=== PATIENT | female | born 1940 | race Caucasian/White ===

== ENCOUNTER → 2017-12-26 | Outpatient (CLI) | payer OTHER | END | disposition home or self-care (01) | LOC: PCVCIMAG 11:30 | DX: I73.9 Peripheral vascular disease, unspecified (principal); E78.00 Pure hypercholesterolemia, unspecified; L97.519 Non-pressure chronic ulcer of other part of right foot with unspecified severity; F17.200 Nicotine dependence, unspecified, uncomplicated; I70.8 Atherosclerosis of other arteries | CPT/HCPCS: 93925; 93978; G0463 ==

== ENCOUNTER → 2018-01-05 | Outpatient (CLI) | payer OTHER ==
[~2018-01-05] MED LIST: ACETAMINOPHEN 500 MG TABLET PO; CLOPIDOGREL BISULFATE 75 MG TABLET; DIAZEPAM 10 MG TABLET.; EPINEPHrine 1 MG/ML VIAL; EPTIFIBATIDE BOLUS 2,000 MCG/ML 10ML VIAL. IV; HEPARIN SODIUM 5,000 UNIT/ML VIAL for PCVC.; IODIXANOL 270 MG/ML 100 ML VIAL.; IV NORMAL SALINE 500ML BAG 1,000 ML; LIDOCAINE 1% Multi-Dose 20 ML VIAL.; MIDAZOLAM HCL/PF 2 MG/2 ML VIAL.; PROTAMINE 50 MG/5 ML VIAL. IV; ceFAZolin SODIUM 1 GM VIAL; fentaNYL PF VIAL 100 MCG/2 ML VIAL; hydrALAZINE 20 MG/ML VIAL.
== END | disposition home or self-care (01) ==
LOC: PCVCIMAG 09:08
DX: I25.10 Atherosclerotic heart disease of native coronary artery without angina pectoris (principal); I73.9 Peripheral vascular disease, unspecified; I10 Essential (primary) hypertension; I70.1 Atherosclerosis of renal artery; L97.919 Non-pressure chronic ulcer of unspecified part of right lower leg with unspecified severity
CPT/HCPCS: 36252; 37221; 37223; 75716; 76937; 99152; 99153; C1725; C1751; C1757; C1760; C1769; C1876; C1887; C1894; J0171; J0360; J0690; J1327; J1644; J2250; J3010; J7040

== ENCOUNTER → 2018-01-12 | Outpatient (CLI) | payer OTHER | END | disposition home or self-care (01) | LOC: PCVCIMAG 14:58 | DX: M79.604 Pain in right leg (principal); M79.89 Other specified soft tissue disorders | CPT/HCPCS: 93971 ==

== ENCOUNTER → 2018-01-25 | Outpatient (CLI) | payer OTHER ==
[~2018-01-25] MED LIST changes: -ACETAMINOPHEN 500 MG TABLET PO; -CLOPIDOGREL BISULFATE 75 MG TABLET; -DIAZEPAM 10 MG TABLET.; -EPINEPHrine 1 MG/ML VIAL; -EPTIFIBATIDE BOLUS 2,000 MCG/ML 10ML VIAL. IV; -HEPARIN SODIUM 5,000 UNIT/ML VIAL for PCVC.; -IODIXANOL 270 MG/ML 100 ML VIAL.; -IV NORMAL SALINE 500ML BAG 1,000 ML; -LIDOCAINE 1% Multi-Dose 20 ML VIAL.; -MIDAZOLAM HCL/PF 2 MG/2 ML VIAL.; -PROTAMINE 50 MG/5 ML VIAL. IV; +REGADENOSON 0.4 MG/5 ML DISP.SYRIN. IV; -ceFAZolin SODIUM 1 GM VIAL; -fentaNYL PF VIAL 100 MCG/2 ML VIAL; -hydrALAZINE 20 MG/ML VIAL.
== END | disposition home or self-care (01) ==
LOC: PCVCIMAG 11:15
DX: I73.9 Peripheral vascular disease, unspecified (principal); I10 Essential (primary) hypertension; E78.5 Hyperlipidemia, unspecified; F17.200 Nicotine dependence, unspecified, uncomplicated
CPT/HCPCS: 78452; 93017; A9500; J2785

== ENCOUNTER → 2018-03-30 | Outpatient (CLI) | payer OTHER | END | disposition home or self-care (01) | LOC: PCVCIMAG 09:10 | DX: I65.23 Occlusion and stenosis of bilateral carotid arteries (principal); I73.9 Peripheral vascular disease, unspecified; K76.89 Other specified diseases of liver | CPT/HCPCS: 93880; 93923; 93978 ==

== ENCOUNTER → 2018-06-19 | Outpatient (CLI) | payer OTHER ==
--- NOTE | 2018-06-19 16:12 | PCVCIMAG ---
EXAM: AORTOILIAC DUPLEX INDICATION: Peripheral arterial disease. Prior right common iliac artery occlusion. FINDINGS: AORTA: Suprarenal aorta measures maximum diameter of 2.3 cm. There is not a fusiform infrarenal aortic aneurysm. The infrarenal aorta measures maximum diameter of 1.7 cm. No aortic stenosis. RIGHT COMMON ILIAC ARTERY: Maximum diameter is 0.9 cm. No significant stenosis. RIGHT EXTERNAL ILIAC ARTERY: 50% residual/recurrent stenosis mid vessel. LEFT COMMON ILIAC ARTERY: Maximum diameter is 0.9 cm. No significant stenosis. LEFT EXTERNAL ILIAC ARTERY: No significant stenosis. IMPRESSION: No abdominal aortic aneurysm. 50% residual stenosis mid right external iliac artery within prior stent. No left iliac stenosis. No change since prior angiogram. LOC:[id number]
--- NOTE | 2018-06-19 16:23 | PCVCIMAG ---
EXAM: BILATERAL LOWER EXTREMITY ARTERIAL DUPLEX INDICATION: Peripheral Arterial Disease. Leg pain. FINDINGS: Right Leg: Common femoral and profunda femoral arteries are patent. Increased systolic velocity of 485 cm/s mid [place] superficial femoral artery consistent with 80-90% stenosis. This is at the site of a moderate exophytic plaque seen on prior angiogram. Popliteal artery is patent. The anterior tibial, peroneal, and posterior tibial arteries are patent. Left Leg: Moderate restenosis common femoral artery at site of previous angioplasty of approximately 60-70%. Previous stent proximal superficial femoral artery maintaining satisfactory patency. Superficial femoral artery and popliteal artery maintaining adequate patency. The anterior tibial, peroneal, and posterior tibial arteries are patent. IMPRESSION: 80-90% stenosis mid [place] right superficial femoral artery. 60-70% restenosis left common femoral artery at site of prior intervention. Previous stent proximal left superficial femoral artery is patent. LOC:[id number]
== END | disposition home or self-care (01) ==
LOC: PCVCIMAG 14:30
PROVIDERS: ATTEND Nuclear Medicine Nuclear Cardiology
DX: I73.9 Peripheral vascular disease, unspecified (principal)
CPT/HCPCS: 93925; 93978

== ENCOUNTER → 2018-10-18 | Outpatient (CLI) | payer OTHER ==
--- NOTE | 2018-10-18 09:27 | PCVCIMAG ---
EXAM: AORTOILIAC DUPLEX INDICATION: Peripheral arterial disease FINDINGS: AORTA: Suprarenal aorta measures maximum diameter of 2.4 cm. There is not a fusiform infrarenal aortic aneurysm. The infrarenal aorta measures maximum diameter of 2.0 cm. No aortic stenosis. RIGHT COMMON ILIAC ARTERY: Maximum diameter is 1.0 cm. No significant stenosis. RIGHT EXTERNAL ILIAC ARTERY: 90% restenosis distal vessel. LEFT COMMON ILIAC ARTERY: Maximum diameter is 1.0 cm. No significant stenosis. LEFT EXTERNAL ILIAC ARTERY: No significant stenosis. IMPRESSION: No abdominal aortic aneurysm. Previous right common iliac and left external iliac artery stents maintaining satisfactory patency. 90% restenosis within prior stent distal right external iliac artery. LOC:OFFICE
--- NOTE | 2018-10-18 09:30 | PCVCIMAG ---
EXAM: BILATERAL LOWER EXTREMITY ARTERIAL DUPLEX INDICATION: Peripheral Arterial Disease. Leg pain. FINDINGS: Right Leg: Common femoral and profunda femoral arteries are patent. 80% stenosis mid [place] superficial femoral artery. Popliteal artery is patent. Anterior tibial, peroneal, and posterior tibial arteries are patent. Left Leg: Mild stenosis distal common femoral artery. [place] femoral artery is patent. Superficial femoral artery and popliteal artery showing adequate patency. The anterior tibial, peroneal, and posterior tibial arteries are patent. IMPRESSION: 80% stenosis mid [place] right superficial femoral artery. Mild stenosis mid/distal left common femoral artery. Otherwise no flow limiting stenosis in the left lower extremity. LOC:OFFICE
== END | disposition home or self-care (01) ==
LOC: PCVCIMAG 08:25
PROVIDERS: ATTEND Nuclear Medicine Nuclear Cardiology
DX: I73.9 Peripheral vascular disease, unspecified (principal); E78.00 Pure hypercholesterolemia, unspecified
CPT/HCPCS: 93925; 93978

== ENCOUNTER → 2018-11-01 | Outpatient (CLI) | payer OTHER | END | disposition home or self-care (01) | LOC: PCVCCLINIC 10:02 | PROVIDERS: ATTEND Nuclear Medicine Nuclear Cardiology | DX: I73.9 Peripheral vascular disease, unspecified (principal); I77.9 Disorder of arteries and arterioles, unspecified; I10 Essential (primary) hypertension; E78.00 Pure hypercholesterolemia, unspecified; L97.519 Non-pressure chronic ulcer of other part of right foot with unspecified severity; F17.200 Nicotine dependence, unspecified, uncomplicated; Z88.5 Allergy status to narcotic agent; Z91.038 Other insect allergy status; Z90.710 Acquired absence of both cervix and uterus | CPT/HCPCS: G0463 ==

== ENCOUNTER → 2018-11-07 | Outpatient (CLI) | payer OTHER ==
[~2018-11-07] MED LIST changes: +DIAZEPAM 10 MG TABLET. ONE; +EPTIFIBATIDE BOLUS 2,000 MCG/ML 10ML VIAL. IV ONE; +HEPARIN for SUB-Q USE 5,000 UNIT/ML VIAL. SQ ONE; +IODIXANOL 270 MG/ML 100 ML VIAL. ONE; +IV NORMAL SALINE 1000ML BAG 1,000 ML ONE; +LIDOCAINE 1%/EPI 1:100,000 20 ML VIAL. ONE; +MIDAZOLAM HCL/PF 2 MG/2 ML VIAL. ONE; -REGADENOSON 0.4 MG/5 ML DISP.SYRIN. IV; +fentaNYL PF VIAL 100 MCG/2 ML VIAL ONE; +hydrALAZINE 20 MG/ML VIAL. ONE
--- NOTE | 2018-11-07 20:14 | PCVCINTER ---
EXAM: 1. AORTOGRAM AND BILATERAL LOWER EXTREMITY RUNOFF ANGIOGRAM 2. BILATERAL RENAL ANGIOGRAPHY 3. RIGHT EXTERNAL ILIAC ARTERY DRUG COATED BALLOON ANGIOPLASTY. 4. LEFT EXTERNAL ILIAC ARTERY ANGIOPLASTY. INDICATION: Peripheral arterial disease. Lower extremity claudication. Hypertension. Renal atherosclerosis. No prior catheter based angiographic study is available. A full diagnostic angiogram study is performed today and the decision to intervene is based on this diagnostic study. PROCEDURE: Procedure and risks of angiography intervention is appropriate including limb loss stroke and were discussed with the patient's family and consent obtained. The patient's left groin was prepped in the normal sterile fashion. IV conscious sedation was used throughout procedure with appropriate monitoring from 1:30 PM through 2:45 PM. Ultrasound was used to interrogate the left groin and showed the left common femoral artery to be patent. A permanent spot film was obtained. Under ultrasound guidance access into the left common femoral artery was obtained and a 5 [place] sheath was placed. Through this a 5 [place] flush catheter was placed into the abdominal aorta at the level of the renal arteries and AP aortogram was performed. Catheter was positioned at the aortic bifurcation and both oblique views of the pelvis were obtained. Catheter was positioned into the left external iliac artery and left leg runoff angiography was performed. Catheter was exchanged for a visceral catheter was placed into the right renal arteries and right renal angiograms obtained. Catheter was placed into the the left renal arteries and left renal angiograms were obtained. Catheter was advanced to the level of the right external iliac artery and right leg runoff angiography was obtained. Patient was given 3000units of heparin. A 6 [place] crossover sheath was placed via the left groin to the level of the right common iliac artery. Following this drug coated balloon angioplasty of the right external iliac artery was carried out with a 6 x 80 BT [employer] [place] [employer] catheter. Angioplasty of the right external iliac artery was performed with a 7 x 4 [employer]URSING DIRECT[employer] catheter. Angioplasty of the left external iliac artery was performed with a 7 x 4 [employer] NURSING DIRECTOR catheter. Follow-up angiogram was performed. Catheters and wires removed. Sheath was removed and hemostasis obtained using the FISH device. No immediate complications. FINDINGS: Aortogram: There is one right and one left renal artery. Moderate plaque infrarenal abdominal aorta without significant stenosis. Pelvis: Previous right and left common iliac artery stents show good patency. 90% restenosis mid/distal right external iliac artery with the prior stent. Moderate restenosis mid left external iliac artery with the prior stent. Moderate plaque right common femoral artery results in 50% stenosis not felt be critically flow-limiting. Moderate plaque lower left common femoral artery results in 60% stenosis. Both profunda femoral arteries are patent. Right renal artery: Minimal plaque proximal vessel does not cause significant stenosis. Left renal artery: Minimal plaque proximal vessel does not cause significant stenosis. Right leg: Expended plaque causes moderate stenosis proximal [place] right superficial femoral artery. Large plaque mid to distal [place] superficial femoral artery results in 50% stenosis. Popliteal artery is patent. The peroneal and posterior tibial artery shows good patency throughout. Occlusion of the distal anterior tibial artery. Left leg: Superficial femoral artery and popliteal artery are patent. Previous stent proximal superficial femoral artery is patent. Three-vessel runoff into the foot. Right external iliac artery: Following procedure as above satisfactory patency restored. Left external iliac artery: Following procedure as above satisfactory patency has been restored. IMPRESSION: Restenosis right and left external iliac arteries as detailed above were treated as above with satisfactory patency restored. LOC:[place] [id number]
== END | disposition home or self-care (01) ==
LOC: PCVCINTER 10:35
PROVIDERS: ATTEND Nuclear Medicine Nuclear Cardiology
DX: I70.213 Atherosclerosis of native arteries of extremities with intermittent claudication, bilateral legs (principal); I70.1 Atherosclerosis of renal artery; I70.0 Atherosclerosis of aorta; I10 Essential (primary) hypertension; E78.00 Pure hypercholesterolemia, unspecified; K21.9 Gastro-esophageal reflux disease without esophagitis; Z85.3 Personal history of malignant neoplasm of breast; Z90.710 Acquired absence of both cervix and uterus; Z98.890 Other specified postprocedural states; Z87.891 Personal history of nicotine dependence; Z88.5 Allergy status to narcotic agent; Z91.030 Bee allergy status; Z79.899 Other long term (current) drug therapy; G62.9 Polyneuropathy, unspecified
CPT/HCPCS: 36252; 37220; 75716; 76937; 99152; 99153; C1725; C1751; C1760; C1769; C1894; J0360; J0690; J1644; J2250; J3010; J3490; J7030; Q9967; J1327

== ENCOUNTER → 2019-03-13 | Outpatient (CLI) | payer OTHER ==
--- NOTE | 2019-03-13 13:57 | PCVCIMAG ---
EXAM: BILATERAL CAROTID DUPLEX INDICATION: Carotid Occlusive Disease. FINDINGS: Doppler Measurements (centimeters per second): RIGHT: Peak CCA-77, Peak ECA-70, Diastolic ICA-18, Peak ICA-114, ICA/CCA Ratio-1.5. LEFT: Peak CCA-96, Peak ECA-61, Diastolic ICA-23, Peak ICA-81, ICA/CCA Ratio-0.5. RIGHT CAROTID: The carotid bulb has moderate plaque. The proximal internal carotid artery shows <40% stenosis. The common carotid artery shows no significant stenosis. The external carotid artery shows no significant stenosis. LEFT CAROTID: The carotid bulb has moderate plaque. The proximal internal carotid artery shows <40% stenosis. The common carotid artery shows no significant stenosis. The external carotid artery shows no significant stenosis. Antegrade flow in both vertebral arteries. IMPRESSION: <40% stenosis of the right internal carotid artery with moderate plaque. <40% stenosis of the left internal carotid artery with moderate plaque. LOC:[place] [id number]
--- NOTE | 2019-03-13 15:47 | PCVCIMAG ---
EXAM: NONINVASIVE ARTERIAL EXAMINATION OF BOTH LOWER EXTREMITIES INCLUDING PRE AND POST EXERCISE PRESSURE MEASUREMENTS AND DOPPLER WAVEFORMS INDICATION: Peripheral Arterial Disease. Leg pain. FINDINGS: Right Brachial: 158 mm Hg. Right Dorsalis Pedis: 120 mm Hg. Right Posterior Tibial: 120 mm Hg. Right JI = 0.76. Left Brachial: 148 mm Hg. Left Dorsalis Pedis: 124 mm Hg. Left Posterior Tibial: 0 mm Hg. Left JI = 0.78. Post Exercise: Right Brachial 157 mm Hg. Right Posterior Tibial: 53 mm Hg. Left Dorsalis Pedis: 80 mm Hg. Right JI = 0.34. Left JI = 0.51. IMPRESSION: Mild resting ischemia in the right lower extremity. Moderately severe exercise induced ischemia in the right lower extremity. Mild resting ischemia in the left lower extremity. Moderate exercise induced ischemia in the left lower extremity. LOC:[id number]
--- NOTE | 2019-03-13 15:49 | PCVCIMAG ---
EXAM: AORTOILIAC DUPLEX INDICATION: Peripheral arterial disease FINDINGS: AORTA: Suprarenal aorta measures maximum diameter of 2.2 cm. There is not a fusiform infrarenal aortic aneurysm. The infrarenal aorta measures maximum diameter of 1.7 cm. No aortic stenosis. RIGHT COMMON ILIAC ARTERY: Maximum diameter is 0.9 cm. No significant stenosis. RIGHT EXTERNAL ILIAC ARTERY: No significant stenosis. LEFT COMMON ILIAC ARTERY: Maximum diameter is 0.8 cm. No significant stenosis. LEFT EXTERNAL ILIAC ARTERY: No significant stenosis. IMPRESSION: No abdominal aortic aneurysm. No aortoiliac stenosis seen. Previous bilateral external iliac artery stents maintaining satisfactory patency. LOC:[id number]
== END | disposition home or self-care (01) ==
LOC: PCVCIMAG 09:19
PROVIDERS: ATTEND Nuclear Medicine Nuclear Cardiology
DX: I65.23 Occlusion and stenosis of bilateral carotid arteries (principal); I99.8 Other disorder of circulatory system; I73.9 Peripheral vascular disease, unspecified; Z95.818 Presence of other cardiac implants and grafts
CPT/HCPCS: 93880; 93924; 93978

== ENCOUNTER → 2019-03-14 | Outpatient (CLI) | payer OTHER | END | disposition home or self-care (01) | LOC: PCVCCLINIC 08:15 | PROVIDERS: ATTEND Nuclear Medicine Nuclear Cardiology | DX: I73.9 Peripheral vascular disease, unspecified (principal); I77.9 Disorder of arteries and arterioles, unspecified; I10 Essential (primary) hypertension; E78.00 Pure hypercholesterolemia, unspecified; L97.519 Non-pressure chronic ulcer of other part of right foot with unspecified severity; Z87.891 Personal history of nicotine dependence; Z88.5 Allergy status to narcotic agent | CPT/HCPCS: G0463 ==

== ENCOUNTER → 2019-09-17 | Outpatient (CLI) | payer OTHER ==
--- NOTE | 2019-09-17 17:20 | PCVCIMAG ---
EXAM: AORTOILIAC DUPLEX INDICATION: Peripheral arterial disease FINDINGS: AORTA: Suprarenal aorta measures maximum diameter of 2.1 cm. There is not a fusiform infrarenal aortic aneurysm. The infrarenal aorta measures maximum diameter of 2.1 cm. No aortic stenosis. RIGHT COMMON ILIAC ARTERY: Maximum diameter is 0.8 cm. No significant stenosis. RIGHT EXTERNAL ILIAC ARTERY: 50% restenosis mid vessel. LEFT COMMON ILIAC ARTERY: Maximum diameter is 0.9 cm. No significant stenosis. LEFT EXTERNAL ILIAC ARTERY: 40% restenosis mid vessel. IMPRESSION: No abdominal aortic aneurysm. 50% restenosis mid right external iliac artery within prior stent. 40% restenosis mid left external iliac artery within prior stent. LOC:[id number]
--- NOTE | 2019-09-17 17:25 | PCVCIMAG ---
EXAM: NONINVASIVE ARTERIAL EXAMINATION OF BOTH LOWER EXTREMITIES INCLUDING PRE AND POST EXERCISE PRESSURE MEASUREMENTS AND DOPPLER WAVEFORMS INDICATION: Peripheral Arterial Disease. Leg pain. FINDINGS: Right Brachial: 140 mm Hg. Right Dorsalis Pedis: 71 mm Hg. Right Posterior Tibial: 80 mm Hg. Right JI = 0.56. Left Brachial: 143 mm Hg. Left Dorsalis Pedis: 69 mm Hg. Left Posterior Tibial: 59 mm Hg. Left JI = 0.48. Post Exercise: Left Brachial 150 mm Hg. Right Posterior Tibial: 56 mm Hg. Left Dorsalis Pedis: 45 mm Hg. Right JI = 0.37. Left JI = 0.30. IMPRESSION: Moderate resting ischemia in the right lower extremity. Moderate severe exercise induced ischemia in the right lower extremity. Moderate resting ischemia in the left lower extremity. Severe exercise induced ischemia in the left lower extremity. LOC:[id number]
== END | disposition home or self-care (01) ==
LOC: PCVCIMAG 09:32
PROVIDERS: ATTEND Nuclear Medicine Nuclear Cardiology
DX: I73.9 Peripheral vascular disease, unspecified (principal); I10 Essential (primary) hypertension; E78.00 Pure hypercholesterolemia, unspecified; K21.9 Gastro-esophageal reflux disease without esophagitis; Z87.891 Personal history of nicotine dependence; Z88.8 Allergy status to other drugs, medicaments and biological substances
CPT/HCPCS: 93924; 93978